=== PATIENT | male | born 1995 | race Caucasian/White ===

== ENCOUNTER 2019-05-06 11:11 | Emergency (ER) | payer BC, MEDICAID ==
[~2019-05-06] VITALS: Ht 180.3 cm; Wt 68.0 kg
[2019-05-06 11:15] VITALS: BP_SYST 116
--- NOTE | 2019-05-06 11:15 | NUR ---
Patient to ER bed 4 to gown for evaluation. Side rails up. Report given to JOHN Adorno.
--- NOTE | 2019-05-06 11:30 | NUR ---
NELSY Acevedo at bedside examining patient.
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
--- NOTE | 2019-05-06 11:52 | NUR ---
Patient given written and verbal discharge instructions and verbalizes understanding. ER MD discussed with patient the results and treatment provided. Patient in stable condition. ID arm band removed. Rx of naprosyn and flexeril given. Patient educated on pain management and to follow up with PMD. Pain Scale 6/10. Opportunity for questions provided and answered. Medication side effect fact sheet provided.
[2019-05-06 11:53] VITALS: BP_SYST 116
== END 2019-05-06 11:52 | disposition home or self-care (01) ==
LOC: SED 11:11
DX: S29.012A Strain of muscle and tendon of back wall of thorax, initial encounter (principal); V49.40XA Driver injured in collision with unspecified motor vehicles in traffic accident, initial encounter; Y93.89 Activity, other specified; Y92.89 Other specified places as the place of occurrence of the external cause; Y99.8 Other external cause status
CPT/HCPCS: 99283

== ENCOUNTER 2019-10-03 18:26 | Emergency (ER) | payer MEDICAID ==
[~2019-10-03] VITALS: Ht 172.7 cm; Wt 66.7 kg
--- NOTE | 2019-10-03 18:30 | NUR ---
Patient to ER bed 3 to gown for evaluation. Side rails up.
[2019-10-03 18:32] VITALS: BP_SYST 129
--- NOTE | 2019-10-03 18:34 | NUR ---
Pt came to ER with severe abdominal pain. He states he threw up about 30 minutes ago which maade him feel a bit better, rates pain 12/05, awaiting MD.
--- NOTE | 2019-10-03 18:44 | NUR ---
ER at bedside examining patient.
[2019-10-03] MEDS ORDERED: MAG HYDROX/AL HYDROX/SIMETH 30 ML, DICYCLOMINE HCL 20 MG, LIDOCAINE VISCOUS 2% 15ML (PO... PO ONE ×3 (18:45)
[2019-10-03] MEDS ORDERED: KETOROLAC TROMETHAMINE 60 MG/2 ML VIAL IM ONE (18:45)
[2019-10-03 19:09] LABS: HEMATOCRIT 46.1 % (36-54); HEMOGLOBIN 15.8 g/dL (14.0-18.0); MEAN CORPUSCULAR HEMOGLOBIN 32 pg (27-31); MEAN CORPUSCULAR HGB CONC 34 % (32-36); MEAN CORPUSCULAR VOLUME 92 fL (79.0-98.0); PLATELET COUNT (AUTO) 160 K/uL (130-430); RED CELL DISTRIBUTION WIDTH 12.7 % (9.0-15.0); WHITE BLOOD COUNT (AUTO) 6.8 K/uL (4.8-10.8)
[2019-10-03 19:10] LABS: BASOPHILS # (AUTO) 0.1 K/uL (0.0-0.2); BASOPHILS % (AUTO) 1.5 % (0.0-2.0); EOSINOPHILS % (AUTO) 0.7 % (0.0-4.0); LYMPHOCYTES # (AUTO) 0.5 K/uL (1.0-5.5); LYMPHOCYTES % (AUTO) 7.4 % (20.5-51.5); MONOCYTES # (AUTO) 0.5 K/uL (0.0-1.0); MONOCYTES % (AUTO) 6.9 % (1.7-9.3); NEUTROPHILS # (AUTO) 5.7 K/uL (1.8-7.7); NEUTROPHILS % (AUTO) 83.5 % (40.0-70.0)
[2019-10-03 19:29] LABS: CALCIUM 8.6 mg/dL (8.4-11.0); CREATININE 0.98 mg/dL (0.55-1.30); POTASSIUM 3.7 mmol/L (3.5-5.1); TOTAL BILIRUBIN 0.7 mg/dL (0.0-1.0)
[2019-10-03 19:30] LABS: ALBUMIN 4.1 g/dL (3.4-4.8)
--- NOTE | 2019-10-03 19:45 | NUR ---
Patient given written and verbal discharge instructions and verbalizes understanding. ER MD discussed with patient the results and treatment provided. Patient in stable condition. ID arm band removed. Rx of Tramadol and Pepcid given. Patient educated on pain management and to follow up with PMD. Pain Scale 0. Opportunity for questions provided and answered. Medication side effect fact sheet provided.
[2019-10-03 19:55] VITALS: BP_SYST 133
== END 2019-10-03 19:55 | disposition home or self-care (01) ==
LOC: SED 18:26
DX: R10.13 Epigastric pain (principal)
CPT/HCPCS: 36415; 80053; 83690; 85025; 96372; 99283; J1885; J2001